=== PATIENT | male | born 1990 | race African-American/Black ===

== ENCOUNTER 2018-01-24 11:37 | Emergency (ER) | payer OTHER ==
[~2018-01-24] VITALS: Ht 182.9 cm; Wt 97.5 kg
[2018-01-24 12:04] VITALS: BP 142/91
[2018-01-24] MEDS ORDERED: PREDNISONE 20 M20 MG PO (12:17)
[2018-01-24] MEDS ORDERED: VENTOLIN HFA 1818 GM INH (12:17)
[2018-01-24] MEDS ORDERED: ZYRTEC10 M2 PO (12:17)
== END 2018-01-24 12:38 | disposition home or self-care (01) ==
LOC: ER 11:37
DX: J34.89 Other specified disorders of nose and nasal sinuses (principal); J32.8 Other chronic sinusitis; B97.89 Other viral agents as the cause of diseases classified elsewhere

== ENCOUNTER 2018-02-24 10:45 | Emergency (ER) | payer OTHER ==
[~2018-02-24] VITALS: Ht 182.9 cm; Wt 97.5 kg
[~2018-02-24 10:45] MED LIST: PREDNISONE 20 M20 MG PO; VENTOLIN HFA 1818 GM INH; ZYRTEC10 M2 PO
[2018-02-24 11:13] VITALS: BP 125/81
[2018-02-24] MEDS ORDERED: IBUPROFEN 800800 M1 PO (12:10)
== END 2018-02-24 13:11 | disposition home or self-care (01) ==
LOC: ER 10:45
DX: S96.912A Strain of unspecified muscle and tendon at ankle and foot level, left foot, initial encounter (principal); J45.909 Unspecified asthma, uncomplicated; W22.8XXA Striking against or struck by other objects, initial encounter; Y92.89 Other specified places as the place of occurrence of the external cause; Y93.89 Activity, other specified; Y99.8 Other external cause status